=== PATIENT | female | born 2005 | race Caucasian/White ===

== ENCOUNTER 2023-09-16 13:11 | Emergency (ER) | payer OTHER, MEDICAID, SELFPAY ==
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
[2023-09-16 13:21] VITALS: BP 156/88; PULSE 97; RESP 18; TEMP 36.3; O2SAT 100
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
[2023-09-16 16:58] VITALS: BP 140/80; PULSE 97; RESP 18; TEMP 36.5; O2SAT 100
[2023-09-16] MEDS: CYCLOBENZAPRINE HCL 10 MG TABLET PO (17:15)
[2023-09-16] MEDS: KETOROLAC 30 MG/ML VIAL (*BKC) IM (17:15)
== END 2023-09-16 17:20 | disposition home or self-care (01) ==
PROVIDERS: Emergency Provider Emergency Medicine
DX: S16.1XXA Strain of muscle, fascia and tendon at neck level, initial encounter (principal); S69.92XA Unspecified injury of left wrist, hand and finger(s), initial encounter; S69.91XA Unspecified injury of right wrist, hand and finger(s), initial encounter; E04.1 Nontoxic single thyroid nodule; V44.5XXA Car driver injured in collision with heavy transport vehicle or bus in traffic accident, initial encounter
CPT/HCPCS: 70450; 72125; 72131; 73110; 81025; 96372; 99284; A9270; J1885